=== PATIENT | male | born 1960 | race Caucasian/White ===

== ENCOUNTER 2016-09-17 07:56 | Day surgery (SDC) | payer OTHER ==
[2016-09-17] VITALS (8 sets, daily range): BP systolic 122–149; BP diastolic 63–85; PULSE 58–71; RESP 12–18; O2SAT 93–100
[~2016-09-17] VITALS: Ht 188 cm; Wt 136.4 kg
[~2016-09-17 07:56] MED LIST: BUTA1TAB52 PO; CARB1TAB14 PO; CELE200C PO; COLC0.6T55 PO; FLUT16SP NS; HYDR50TA3 PO; HYDR50TA76 PO; LOSA50TA37 PO; Lactated Ringer's 1,000 ML IV ONE; PANT40TA3 PO; POTA10TA12 PO; PRAM0.5T3 PO; PROP20TA5 PO; ZYL100 PO
[2016-09-17] MEDS ORDERED: Lidocaine PF 1% 30 mL Inj ONE (07:57)
[2016-09-17] MEDS ORDERED: Propofol 10,000 mCg/mL 20 mL Inj ONE (07:57)
[2016-09-17] MEDS ORDERED: fentaNYL-PF 50 mCg/mL 2 mL Inj ONE (07:57)
[2016-09-17] MEDS ORDERED: Ondansetron 2 mg/mL 2 mL Inj ONE (07:57)
[2016-09-17] MEDS ORDERED: Lactated Ringer's 500 ML IV PRN (08:53)
[2016-09-17] MEDS ORDERED: Lactated Ringer's 1,000 ML IV SCH (08:53)
[2016-09-17] MEDS ORDERED: EPHEDrine Sulfate 50 mg/mL Inj IVPUSH PRN (08:55)
[2016-09-17] MEDS ORDERED: MetoCLOpramide 5 mg/mL 2 mL Inj IVPUSH PRN (08:55)
[2016-09-17] MEDS ORDERED: Phenylephrine 10,000 mCg/mL Inj IVPUSH PRN (08:55)
[2016-09-17] MEDS ORDERED: Atropine 0.4 mg/mL Inj IVPUSH PRN (08:55)
[2016-09-17] MEDS ORDERED: Ondansetron 2 mg/mL 2 mL Inj IVPUSH PRN (08:55)
[2016-09-17] MEDS: Dexamethasone Inj 20 MG in Dextrose 5%-Pha MIX 50 ML IV SCH ×2 (08:59→09:00)
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
[2016-09-17] MEDS ORDERED: Lidocaine 2%-Epi 1:100,000 20 mL Inj NERVEBLOCK ONE (09:55)
--- NOTE | 2016-09-17 10:54 | PCM.ANEP1 ---
Post Anesthesia Phase 1 PACU Phase 1 Assessment Date of Service: Sep 17, 2016 Vital Signs Vital Signs Date Time Temp Pulse Resp B/P Pulse Ox O2 Delivery O2 Flow Rate FiO2 09/17/16 08:33 CPAP/BIPAP 09/17/16 08:33 36.2 59 18 126/63 97 Room Air Anesthetic Administered: GA Level of Alertness: Sleepy, easy to arouse MAIER's with Equal Strength: Yes Pain: No Nausea or Vomiting: No Oxygen Delivery: Simple Mask Lungs: Normal Air Movement Mauro Bowden MD Sep 17, 2016 10:54
[2016-09-17] MEDS: fentaNYL-PF 50 mCg/mL 2 mL Inj IVPUSH PRN ×2 (10:57→11:15)
[2016-09-17] MEDS: HYDROmorphone 1 mg/mL Inj IVPUSH PRN ×3 (10:59→12:30)
--- NOTE | 2016-09-17 11:22 | PCM.ANEP2 ---
Post Anesthesia Evaluation ASA/CMS Post Anesthesia Date of Service: Sep 17, 2016 VS in Patient's Normal Range?: Yes Resp Stable; Airway Patent?: Yes CV Function & Hydration Stable: Yes Mental Status Recovered?: Yes Pain control Satisfactory?: No (IV opioids being given as tolerated by respiratory status) N/V Control Satisfactory?: Yes Mauro Bowden MD Sep 17, 2016 11:22
[2016-09-17] MEDS ORDERED: HYDROcodone-APAP 5-325 mg Tablet PO ONE (11:29)
--- NOTE | 2016-09-17 21:39 | OP ---
[address] [address] OPERATIVE REPORT PATIENT: SELENA HERNANDEZ : 1960 MR#: [id number] ADMIT: 09/17/2016 JOB ID: [id number] DATE OF SURGERY: SURGEON: Louis Olivas MD. PREOPERATIVE DIAGNOSIS(ES): Nasal obstruction with septal deviation, nasal valve collapse, and turbinate hypertrophy. Also chronic sinusitis. POSTOPERATIVE DIAGNOSIS(ES): Nasal obstruction with septal deviation, nasal valve collapse, and turbinate hypertrophy. Also chronic sinusitis. PROCEDURE: Septoplasty, submucosal treatment of inferior turbinates, nasal vestibular stenosis repair and bilateral ethmoid and maxillary sinusotomies. HISTORY AND INDICATIONS: A 56-year-old gentleman, chronic nasal obstruction from septal turbinate and valve pathology complicating use of CPAP. Also chronic sinusitis. PROCEDURE AND FINDINGS: The patient taken to the operating room, placed in supine position on the operating table. General endotracheal anesthesia induced. Face prepped and draped in a sterile fashion. The nose was inspected. Septum is off to the right at the caudal end and to the left in the upper mid nose. Inferior turbinates hypertrophied, right greater than left. Valves are collapsed bilaterally. The valve septum uncinate process and inferior turbinates were injected with 2% lidocaine, 1: 100,000 epinephrine. The nose was then packed with Afrin on cotton. After allowing adequate time for local anesthetic, the packing is removed. With a 15 blade, a left anteroseptal incision was made. With a Beaver elevator, the mucoperichondrium and periosteum were elevated. Significant scarring is encountered in the septal envelope. The quadrangular cartilage was dislocated from its attachments to the perpendicular plate of the ethmoid, the vomer and maxillary crest. With a Tennyson stripper, portions of the bony septum were removed. The quadrangular cartilage was trimmed so that it can lie comfortably in the midline. A pocket was created in the columella to accept the repositioned caudal end. The anterior incision was closed with interrupted 4-0 chromic. Septum was mattressed with multiple interrupted 4-0 plain. Silastic splints were fashioned and placed on either side of the septum and secured with a through-and- through 4-0 nylon. With a 15 blade, an incision was made in the intracartilaginous area bilaterally. The redundant portion of the upper lateral cartilage was dissected free and a 3 mm strip was excised bilaterally. The now redundant vestibular skin was trimmed. With 4-0 chromic these incisions were closed. Stab incisions made on the anterior tip of the inferior turbinates bilaterally. The turbinate bone was exposed with a Torres elevator. Portions were removed further. Further submucosal treatment of the turbinates was undertaken with the suction cautery. Then, with the 0-degree scope, up-biting instrument and microdebrider, the uncinate process was taken down on the right exposing the maxillary outflow tract. The maxillary natural ostium was enlarged anteriorly and inferiorly with backbiting instrument and the microdebrider. The ethmoidal bulla was opened. The mid and anterior ethmoids were open. A cheri bullosa was addressed on the right middle turbinate by resecting the lateral portion. Once all areas were open on this side attention was directed to the left side. On this side, same procedure carried out with the exception of the cheri bullosa. A Merocel pack was placed in the lower nasal cavity to compress the inferior turbinates bilaterally. Patient is awakened and extubated in the operating room, returned to the recovery room in good condition. ESTIMATED BLOOD LOSS: 50 cc. PATHOLOGY SPECIMENS: None. COMPLICATIONS: None.
== END 2016-09-17 23:59 | disposition home or self-care (01) ==
LOC: SAS 07:56
PROVIDERS: ATTEND Otolaryngology Facial Plastic Surgery
DX: J34.2 Deviated nasal septum (principal); J34.3 Hypertrophy of nasal turbinates; J34.89 Other specified disorders of nose and nasal sinuses; J32.8 Other chronic sinusitis; I10 Essential (primary) hypertension; K21.9 Gastro-esophageal reflux disease without esophagitis
CPT/HCPCS: 30140; 30465; 30520; 31254; 31256; J1100; J1170; J2405; J2765; J3010; J7120